=== PATIENT | male | born 1940 | race Caucasian/White ===

== ENCOUNTER 2019-05-27 03:19 | Emergency (ER) | payer MEDICARE, BC ==
[2019-05-27 03:28] LABS: ANION GAP 10.7; CHLORIDE,CL 105 mmol/L (101-111); SODIUM,NA 138 mmol/L (135-145)
[2019-05-27] MEDS ORDERED: hydrALAZINE 20 MG/ML SDV IVPUSH ONE (03:31)
--- NOTE | 2019-05-27 04:33 | EDM.PDOC ---
ED HPI GENERAL MEDICAL PROBLEM - General Chief Complaint: Syncope Stated Complaint: AMBULANCE Time Seen by Provider: 05/27/19 03:25 Source of Information: Reports: Patient, EMS, Family History Limitations: Reports: No Limitations - History of Present Illness INITIAL COMMENTS - FREE TEXT/NARRATIVE: c/o not feeling well all day yesterday, with primary symptom of dull headache across forehead . woke around 1 to go to BR and was dizzy, went back to bed for hour, woke again to go to BR and dizziness seemed worse. Called EMS, By time EMS arrive patient felt better, had taken 2 aspirin, Denied chest pain, weakness, no difficulty talking. No memory or balance sx reported. EMS not able to walk from house to rig on own. N0 recent fever, felt chilled some yesterday. No nausea or vomiting. - Related Data Allergies Allergy/AdvReac Type Severity Reaction Status Date / Time azithromycin [From Zithromax] Allergy Cannot Verified 05/27/19 03:00 Remember ezetimibe Allergy Muscle Verified 05/27/19 03:00 Aches oxycodone [Oxycodone] Allergy Tachycardia Verified 05/27/19 03:00 pantoprazole [From Protonix] Allergy Cannot Verified 05/27/19 03:00 Remember pravastatin Allergy Muscle Verified 05/27/19 03:00 Aches Jvcopmy-Erp-Yxn Reductase Allergy Muscle Verified 05/27/19 03:00 Inhibitor Aches Home Meds: Home Meds Aspirin [Low Dose Aspirin EC] 81 mg PO DAILY 01/15/14 [History] Multivitamin [Men's Multi-Vitamin] 1 tab PO DAILY 01/15/14 [History] Tamsulosin [Flomax] 0.4 mg PO DAILY 01/15/14 [History] Levothyroxine [Synthroid] 100 mcg PO DAILY 04/09/19 [History] Losartan [Cozaar] 50 mg PO DAILY 04/09/19 [History] atorvaSTATin [Lipitor] 10 mg PO DAILY 04/09/19 [History] Budesonide/Formoterol Fumarate [Symbicort 80-4.5 MCG] 1 puff INH BID 04/10/19 [ History] Methotrexate 15 mg PO WEEKLY 04/10/19 [History] Albuterol [Ventolin HFA] 2 puff INH Q4H PRN 05/27/19 [History] Past Medical History Cardiovascular History: Reports: High Cholesterol, Hypertension Social & Family History - Family History Family Medical History: Noncontributory - Tobacco Use Smoking Status *Q: Never Smoker Second Hand Smoke Exposure: No - Caffeine Use Caffeine Use: Reports: None - Recreational Drug Use Recreational Drug Use: No ED ROS GENERAL - Review of Systems Review Of Systems: Comprehensive ROS is negative, except as noted in HPI. ED EXAM, DIZZINESS - Physical Exam Exam: See Below Exam Limited By: No Limitations General Appearance: Alert, No Apparent Distress, Anxious (mild) Eye Exam: Bilateral Eye: EOMI, PERRL Ears: Normal External Exam, Normal Canal, Normal TMs Nose: Normal Inspection Throat/Mouth: Normal Inspection, Normal Lips, Normal Voice Head Exam: Atraumatic, Normocephalic Neck: Normal Inspection, Full Range of Motion Respiratory/Chest: No Respiratory Distress, Lungs Clear, Normal Breath Sounds Cardiovascular: Normal Peripheral Pulses, Regular Rate, Rhythm, No Edema GI/Abdominal: Normal Bowel Sounds Neurological: Alert, Normal Mood/Affect, Normal Dorsiflexion, CN II-XII Intact, Normal Plantar Flexion, No Motor/Sensory Deficits, Oriented x 3. No: Abnormal Sensation, Abnormal Light Touch Extremities: Normal Inspection Psychiatric: Anxious (mild) Skin Exam: Warm, Dry, Intact, Normal Color Course - Vital Signs Last Recorded V/S: Last Vital Signs Temp 97.4 F 05/27/19 03:00 Pulse 64 05/27/19 03:00 Resp 16 05/27/19 03:00 BP 176/80 H 05/27/19 03:00 Pulse Ox 97 05/27/19 03:00 - Orders/Labs/Meds Orders: Active Orders 24 hr Category Date Time Status EKG Documentation Completion [RC] STAT Care 05/27/19 03:03 Active Chest 1V Frontal [CR] Stat Exams 05/27/19 03:03 Taken Head wo Cont [CT] Stat Exams 05/27/19 03:03 Taken Labs: Laboratory Tests 05/27/19 05/27/19 05/27/19 Range/Units 03:02 03:02 03:02 WBC 6.8 (5.0-10.0) 10^3/uL RBC 4.10 L (4.6-6.2) 10^6/uL Hgb 13.5 L (14.0-18.0) g/dL Hct 39.0 L (40.0-54.0) % MCV 95.1 (80-100) fL MCH 32.9 (27.0-34.0) pg MCHC 34.6 (33.0-35.0) g/dL Plt Count 193 (150-450) 10^3/uL Neut % (Auto) 69.5 (42.2-75.2) % Lymph % (Auto) 18.5 L (20.5-50.1) % [place] % (Auto) 7.1 (2-8) % Eos % (Auto) 4.0 H (1.0-3.0) % Baso % (Auto) 0.9 (0.0-1.0) % PT 9.5 (9.0-12.0) SEC INR 0.9 (0.9-1.2) Sodium 138 (135-145) mmol/L Potassium 3.7 (3.6-5.0) mmol/L Chloride 105 (101-111) mmol/L Carbon Dioxide 26.0 (21.0-31.0) mmol/L Anion Gap 10.7 BUN 15 (7-18) mg/dL Creatinine 1.1 (0.6-1.3) mg/dL Est Cr Clr Drug Dosing TNP Estimated GFR (MDRD) > 60 BUN/Creatinine Ratio 13.63 Glucose 106 H (74-105) mg/dL Calcium 8.8 (8.4-10.2) mg/dl Magnesium 2.0 (1.8-2.5) mg/dL Total Bilirubin 0.6 (0.2-1.0) mg/dL AST 25 (10-42) IU/L ALT 21 (10-60) IU/L Alkaline Phosphatase 90 (42-121) IU/L CK-MB (CK-2) (0.4-4.7) ng/mL Troponin I (0.00-0.02) ng/ml B-Natriuretic Peptide (0-100) pg/ml Total Protein 6.8 (6.7-8.2) g/dl Albumin 4.2 (3.2-5.5) g/dl Globulin 2.6 Albumin/Globulin Ratio 1.62 TSH, Ultra Sensitive (0.45-5.33) uIu/mL Urine Color (YELLOW) Urine Appearance (CLEAR) Urine pH (5.0-9.0) Ur Specific [place] (1.005-1.030) Urine Protein (NEGATIVE) Urine Glucose (UA) (NEGATIVE) Urine Ketones (NEGATIVE) Urine Occult Blood (NEGATIVE) Urine Nitrite (NEGATIVE) Urine Bilirubin (NEGATIVE) Urine Urobilinogen (0.2-1.0) mg/dL Ur Leukocyte Esterase (NEGATIVE) Urine RBC /HPF Urine WBC (0-5/HPF) /HPF Ur Epithelial Cells (NOT SEEN) /HPF Amorphous Sediment (NOT SEEN) /HPF Urine Bacteria (0-FEW/HPF) /HPF Urine Mucus (NOT SEEN) /LPF Ethyl Alcohol < 5 mg/dL 05/27/19 05/27/19 05/27/19 Range/Units 03:02 03:02 03:02 WBC (5.0-10.0) 10^3/uL RBC (4.6-6.2) 10^6/uL Hgb (14.0-18.0) g/dL Hct (40.0-54.0) % MCV (80-100) fL MCH (27.0-34.0) pg MCHC (33.0-35.0) g/dL Plt Count (150-450) 10^3/uL Neut % (Auto) (42.2-75.2) % Lymph % (Auto) (20.5-50.1) % [place] % (Auto) (2-8) % Eos % (Auto) (1.0-3.0) % Baso % (Auto) (0.0-1.0) % PT (9.0-12.0) SEC INR (0.9-1.2) Sodium (135-145) mmol/L Potassium (3.6-5.0) mmol/L Chloride (101-111) mmol/L Carbon Dioxide (21.0-31.0) mmol/L Anion Gap BUN (7-18) mg/dL Creatinine (0.6-1.3) mg/dL Est Cr Clr Drug Dosing Estimated GFR (MDRD) BUN/Creatinine Ratio Glucose (74-105) mg/dL Calcium (8.4-10.2) mg/dl Magnesium (1.8-2.5) mg/dL Total Bilirubin (0.2-1.0) mg/dL AST (10-42) IU/L ALT (10-60) IU/L Alkaline Phosphatase (42-121) IU/L CK-MB (CK-2) 1.60 (0.4-4.7) ng/mL Troponin I < 0.02 (0.00-0.02) ng/ml B-Natriuretic Peptide (0-100) pg/ml Total Protein (6.7-8.2) g/dl Albumin (3.2-5.5) g/dl Globulin Albumin/Globulin Ratio TSH, Ultra Sensitive 4.75 (0.45-5.33) uIu/mL Urine Color (YELLOW) Urine Appearance (CLEAR) Urine pH (5.0-9.0) Ur Specific [place] (1.005-1.030) Urine Protein (NEGATIVE) Urine Glucose (UA) (NEGATIVE) Urine Ketones (NEGATIVE) Urine Occult Blood (NEGATIVE) Urine Nitrite (NEGATIVE) Urine Bilirubin (NEGATIVE) Urine Urobilinogen (0.2-1.0) mg/dL Ur Leukocyte Esterase (NEGATIVE) Urine RBC /HPF Urine WBC (0-5/HPF) /HPF Ur Epithelial Cells (NOT SEEN) /HPF Amorphous Sediment (NOT SEEN) /HPF Urine Bacteria (0-FEW/HPF) /HPF Urine Mucus (NOT SEEN) /LPF Ethyl Alcohol mg/dL 05/27/19 05/27/19 Range/Units 03:02 03:48 WBC (5.0-10.0) 10^3/uL RBC (4.6-6.2) 10^6/uL Hgb (14.0-18.0) g/dL Hct (40.0-54.0) % MCV (80-100) fL MCH (27.0-34.0) pg MCHC (33.0-35.0) g/dL Plt Count (150-450) 10^3/uL Neut % (Auto) (42.2-75.2) % Lymph % (Auto) (20.5-50.1) % [place] % (Auto) (2-8) % Eos % (Auto) (1.0-3.0) % Baso % (Auto) (0.0-1.0) % PT (9.0-12.0) SEC INR (0.9-1.2) Sodium (135-145) mmol/L Potassium (3.6-5.0) mmol/L Chloride (101-111) mmol/L Carbon Dioxide (21.0-31.0) mmol/L Anion Gap BUN (7-18) mg/dL Creatinine (0.6-1.3) mg/dL Est Cr Clr Drug Dosing Estimated GFR (MDRD) BUN/Creatinine Ratio Glucose (74-105) mg/dL Calcium (8.4-10.2) mg/dl Magnesium (1.8-2.5) mg/dL Total Bilirubin (0.2-1.0) mg/dL AST (10-42) IU/L ALT (10-60) IU/L Alkaline Phosphatase (42-121) IU/L CK-MB (CK-2) (0.4-4.7) ng/mL Troponin I (0.00-0.02) ng/ml B-Natriuretic Peptide 29 (0-100) pg/ml Total Protein (6.7-8.2) g/dl Albumin (3.2-5.5) g/dl Globulin Albumin/Globulin Ratio TSH, Ultra Sensitive (0.45-5.33) uIu/mL Urine Color Light yellow (YELLOW) Urine Appearance Slightly cloudy (CLEAR) Urine pH 8.5 (5.0-9.0) Ur Specific [place] 1.020 (1.005-1.030) Urine Protein Negative (NEGATIVE) Urine Glucose (UA) Negative (NEGATIVE) Urine Ketones Negative (NEGATIVE) Urine Occult Blood Trace-intact H (NEGATIVE) Urine Nitrite Negative (NEGATIVE) Urine Bilirubin Negative (NEGATIVE) Urine Urobilinogen 0.2 (0.2-1.0) mg/dL Ur Leukocyte Esterase Negative (NEGATIVE) Urine RBC 0-5 /HPF Urine WBC Not seen (0-5/HPF) /HPF Ur Epithelial Cells Rare (NOT SEEN) /HPF Amorphous Sediment Few (NOT SEEN) /HPF Urine Bacteria Rare (0-FEW/HPF) /HPF Urine Mucus Few H (NOT SEEN) /LPF Ethyl Alcohol mg/dL Meds: Medications Discontinued Medications Generic Name Dose Route Start Last Admin Trade Name Freq PRN Reason Stop Dose Admin Hydralazine HCl 5 mg 05/27/19 03:31 Apresoline IVPUSH 05/27/19 03:32 ONETIME ONE - Radiology Interpretation Free Text/Narrative:: head CT question subacute left occipital infarct MRI recommended. See full Radiology report. - Re-Assessments/Exams Free Text/Narrative Re-Assessment/Exam: 05/27/19 05:[address] Michelle Woodson ED accepting. Departure - Departure Time of Disposition: 05:03 Disposition: DC/Tfer to Acute Hospital 02 Condition: Undetermined Clinical Impression: Dizzy - Discharge Information *PRESCRIPTION DRUG MONITORING PROGRAM REVIEWED*: No *COPY OF PRESCRIPTION DRUG MONITORING REPORT IN PATIENT KYLE: No Forms: ED Department Discharge Sepsis Event Note - Evaluation Sepsis Screening Result: No Definite Risk - Focused Exam Vital Signs: Vital Signs Temp Pulse Resp BP Pulse Ox 05/27/19 03:00 97.4 F 64 16 176/80 H 97 Date Exam was Performed: 05/27/19 Time Exam was Performed: 05:04 - My Orders Last 24 Hours: My Active Orders 05/27/19 03:03 EKG Documentation Completion [RC] STAT Chest 1V Frontal [CR] Stat Head wo Cont [CT] Stat - Assessment/Plan Last 24 Hours: My Active Orders 05/27/19 03:03 EKG Documentation Completion [RC] STAT Chest 1V Frontal [CR] Stat Head wo Cont [CT] Stat
== END 2019-05-27 05:45 ==
LOC: DL.ED 03:19
DX: R42 Dizziness and giddiness (principal); I10 Essential (primary) hypertension; E78.00 Pure hypercholesterolemia, unspecified; Z88.1 Allergy status to other antibiotic agents; Z88.8 Allergy status to other drugs, medicaments and biological substances; Z79.82 Long term (current) use of aspirin
CPT/HCPCS: 36415; 70450; 71045; 80053; 80307; 81001; 82553; 83735; 83880; 84443; 84484; 85025; 85610; 87804; 93005; 99284; 99285-25

== ENCOUNTER 2019-06-20 09:58 | Emergency (ER) | payer MEDICARE, BC ==
[2019-06-20] MEDS ORDERED: Oxymetazoline 0.05% Nasal Spray 15 ML Bottle NAS ONE ×2 (09:59→10:21)
[2019-06-20] MEDS ORDERED: Tranexamic Acid 1,000 MG in Sodium Chloride 0.9% 100 ML IV ONE (10:13)
[2019-06-20] MEDS ORDERED: Oxymetazoline 0.05% Nasal Spray 15 ML Bottle ONE (10:23)
--- NOTE | 2019-06-20 10:52 | EDM.PDOC ---
ED HPI GENERAL MEDICAL PROBLEM - General Chief Complaint: ENT Problem Stated Complaint: BLOODY NOSE Time Seen by Provider: 06/20/19 10:25 Source of Information: Reports: Patient, Family (), Old Records, RN, RN Notes Reviewed History Limitations: Reports: No Limitations - History of Present Illness INITIAL COMMENTS - FREE TEXT/NARRATIVE: Pt presents to ER with c/o onset of bleeding from right nares yesterday. Denies cough, trauma, congestion, or any known cause. He takes an Aspirin 81mg daily. Remote history of nose bleeds, but none for several years. Denies lightheadedness, rapid HR, or syncope. Pt was initially able to get the bleeding to stop, but it recurred several times yesterday and through the night. Today the Rt side began bleeding heavier and after being unable to stop it at all, he decided to come to the ER. Onset: Sudden Duration: Getting Worse, Recurring Quality: Reports: Other (Denies pain) Severity: Severe Improves with: Reports: None Worsens with: Reports: None Associated Symptoms: Reports: No Other Symptoms Treatments SEO EXECUTIVE: Reports: Home Treatments (pressure) - Related Data Allergies Allergy/AdvReac Type Severity Reaction Status Date / Time azithromycin [From Zithromax] Allergy Cannot Verified 05/27/19 03:00 Remember ezetimibe Allergy Muscle Verified 05/27/19 03:00 Aches oxycodone [Oxycodone] Allergy Tachycardia Verified 05/27/19 03:00 pantoprazole [From Protonix] Allergy Cannot Verified 05/27/19 03:00 Remember pravastatin Allergy Muscle Verified 05/27/19 03:00 Aches Xaqzcoc-Jjw-Yqr Reductase Allergy Muscle Verified 05/27/19 03:00 Inhibitor Aches Home Meds: Home Meds Aspirin [Low Dose Aspirin EC] 81 mg PO DAILY 01/15/14 [History] Multivitamin [Men's Multi-Vitamin] 1 tab PO DAILY 01/15/14 [History] Tamsulosin [Flomax] 0.4 mg PO DAILY 01/15/14 [History] Levothyroxine [Synthroid] 100 mcg PO DAILY 04/09/19 [History] Losartan [Cozaar] 50 mg PO DAILY 04/09/19 [History] atorvaSTATin [Lipitor] 10 mg PO DAILY 04/09/19 [History] Budesonide/Formoterol Fumarate [Symbicort 80-4.5 MCG] 1 puff INH BID 04/10/19 [ History] Methotrexate 15 mg PO WEEKLY 04/10/19 [History] Albuterol [Ventolin HFA] 2 puff INH Q4H PRN 05/27/19 [History] Past Medical History Cardiovascular History: Reports: High Cholesterol, Hypertension Social & Family History - Family History Family Medical History: Noncontributory - Caffeine Use Caffeine Use: Reports: None - Living Situation & Occupation Living situation: Reports: , with Spouse Occupation: Retired ED ROS ENT - Review of Systems Review Of Systems: Comprehensive ROS is negative, except as noted in HPI. ED EXAM, ENT - Physical Exam Exam: See Below Exam Limited By: No Limitations General Appearance: Alert, WD/WN, No Apparent Distress Eye Exam: Bilateral Eye: Normal Inspection Nose: Active Bleeding (Rt nares) Mouth/Throat: Normal Lips, Normal Oropharynx (with blood in pharynx) Head: Atraumatic, Normocephalic Neck: Normal Inspection Respiratory/Chest: No Respiratory Distress, Lungs Clear, Normal Breath Sounds, No Accessory Muscle Use, Chest Non-Tender Cardiovascular: Regular Rate, Rhythm Neurological: Alert, Oriented, CN II-XII Intact Psychiatric: Normal Affect, Normal Mood Skin: Warm, Dry, Intact, Normal Color, No Rash ED ENT PROCEDURES - Epistaxis Procedure Indication: Epistaxis, Uncontrolled Recent anticoagulants/antiplatlets: Yes Uncontrolled HTN: No Recent septal/nasal surgery: No Site of bleeding: Right Nare Clearing of clots: Patient Blew Nose Topical Meds: Other (Afrin) Ice pack to area: Yes Anterior Packing: Inflatable Nasal Tampon (soaked in TXA) Complications: No Course - Vital Signs Last Recorded V/S: Last Vital Signs Temp 98.1 F 06/20/19 10:15 Pulse 69 06/20/19 10:15 Resp 18 06/20/19 10:15 BP 142/67 H 06/20/19 10:15 Pulse Ox 99 06/20/19 10:15 - Orders/Labs/Meds Meds: Medications Discontinued Medications Generic Name Dose Route Start Last Admin Trade Name Freq PRN Reason Stop Dose Admin Tranexamic Acid 1,000 mg/ 110 mls @ 660 mls/hr 06/20/19 10:13 Sodium Chloride IV 06/20/19 10:22 ONETIME ONE Oxymetazoline HCl 1 ml 06/20/19 10:21 06/20/19 10:27 Afrin Original 0.05% Nasal [place] YOSSI 06/20/19 10:22 1 ml ONETIME ONE Administration Oxymetazoline HCl Confirm 06/20/19 10:23 06/20/19 10:27 Afrin Original 0.05% Nasal [place] Administered 06/20/19 10:24 Not Given Dose 15 ml .ROUTE .STK-MED ONE Tranexamic Acid 1,000 mg 06/20/19 10:29 06/20/19 10:31 Cyklokapron TOP 06/20/19 10:38 1,000 mg ONETIME ONE Administration Departure - Departure Time of Disposition: 10:53 Disposition: Home, Self-Care 01 Condition: Good Clinical Impression: Epistaxis - Discharge Information *PRESCRIPTION DRUG MONITORING PROGRAM REVIEWED*: Not Applicable *COPY OF PRESCRIPTION DRUG MONITORING REPORT IN PATIENT KYLE: Not Applicable Instructions: Nosebleed, Adult Forms: ED Department Discharge Additional Instructions: Rx: Augmentin 875mg Do not blow or rub nose. Follow up in clinic tomorrow (Tuesday) or Tuesday for removal of nasal packing. Sepsis Event Note - Evaluation Sepsis Screening Result: No Definite Risk - Focused Exam Vital Signs: Vital Signs Temp Pulse Resp BP Pulse Ox 06/20/19 10:15 98.1 F 69 18 142/67 H 99 Date Exam was Performed: 06/20/19 Time Exam was Performed: 10:55
== END 2019-06-20 11:18 | disposition home or self-care (01) ==
LOC: DL.ED 09:58
DX: R04.0 Epistaxis (principal); E78.00 Pure hypercholesterolemia, unspecified; I10 Essential (primary) hypertension; Z79.82 Long term (current) use of aspirin; Z79.899 Other long term (current) drug therapy; Z88.5 Allergy status to narcotic agent; Z88.1 Allergy status to other antibiotic agents
CPT/HCPCS: 30901; 99283; A9270

== ENCOUNTER 2022-02-08 07:13 | Day surgery (SDC) | payer MEDICARE, BC ==
[~2022-02-08 07:13] MED LIST: Midazolam 1 MG/ML 2 ML SDV ONE; fentaNYL 100 MCG/2 ML SDV ONE
[2022-02-08] MEDS ORDERED: fentaNYL 100 MCG/2 ML SDV IV ONE (07:14)
[2022-02-08] MEDS ORDERED: Midazolam 1 MG/ML 2 ML SDV IV ONE (07:14)
[2022-02-08] MEDS: Dextrose 5%-0.45% NaCl 1,000 ML IV SCH (07:45)
[2022-02-08] MEDS: fentaNYL 100 MCG/2 ML SDV IV ONE ×2 (09:13→09:14)
[2022-02-08] MEDS: Midazolam 1 MG/ML 2 ML SDV IV ONE ×4 (09:14→09:21)
== END 2022-02-08 11:13 | disposition home or self-care (01) ==
LOC: DL.ENDO 07:13
PROVIDERS: ATTEND Internal Medicine Gastroenterology
DX: Z12.11 Encounter for screening for malignant neoplasm of colon (principal); K57.30 Diverticulosis of large intestine without perforation or abscess without bleeding; K62.7 Radiation proctitis; H91.90 Unspecified hearing loss, unspecified ear; I10 Essential (primary) hypertension; E03.9 Hypothyroidism, unspecified; E78.00 Pure hypercholesterolemia, unspecified; G47.33 Obstructive sleep apnea (adult) (pediatric); G45.1 Carotid artery syndrome (hemispheric); D64.9 Anemia, unspecified; Z86.010 Personal history of colon polyps; Z86.16 Personal history of COVID-19; Z98.890 Other specified postprocedural states; Z88.1 Allergy status to other antibiotic agents; Z88.5 Allergy status to narcotic agent; Z79.82 Long term (current) use of aspirin
CPT/HCPCS: G0105; J2250; J3010; J7042

== ENCOUNTER 2023-04-13 11:45 | Emergency (ER) | payer MEDICARE, BC ==
[2023-04-13] MEDS ORDERED: cefTRIAXone 1 GM, Lidocaine 1% 2.1 ML IM ONE ×2 (12:53)
[2023-04-13] MEDS ORDERED: Benzonatate 100 MG Cap PO ONE (12:53)
[2023-04-13 13:07] LABS: CORONAVIRUS COVID-19 NAA NEGATIVE (NEGATIVE); INFLUENZA A NAA POSITIVE (NEGATIVE); INFLUENZA B NAA NEGATIVE (NEGATIVE); RESPIRATORY SYNCYTIAL VIR NAA NEGATIVE (NEGATIVE)
== END 2023-04-13 13:44 | disposition home or self-care (01) ==
LOC: DL.ED 11:45
DX: J18.9 Pneumonia, unspecified organism (principal); E78.00 Pure hypercholesterolemia, unspecified; I10 Essential (primary) hypertension; I25.10 Atherosclerotic heart disease of native coronary artery without angina pectoris; M19.90 Unspecified osteoarthritis, unspecified site; J45.909 Unspecified asthma, uncomplicated; Z86.16 Personal history of COVID-19; Z79.82 Long term (current) use of aspirin; Z79.899 Other long term (current) drug therapy; Z88.8 Allergy status to other drugs, medicaments and biological substances
CPT/HCPCS: 0241U; 71046; 87081; 87430; 96372; 99284; A9270-GY; J0696; J3490

== ENCOUNTER 2023-12-22 17:28 | Emergency (ER) | payer MEDICARE, BC ==
[2023-12-22 19:04] LABS: BASOPHILS PERCENT AUTO 1.2 % (0.0-1.0); EOSINOPHILS PERCENT AUTO 5.1 % (1.0-3.0); HEMATOCRIT 39.5 % (40.0-54.0); HEMOGLOBIN 12.7 g/dL (14.0-18.0); MEAN CORPUSCULAR HEMOGLOBIN 30.8 pg (27.0-34.0); MEAN CORPUSCULAR HGB CONC 32.2 g/dL (33.0-35.0); MEAN CORPUSCULAR VOLUME 95.6 fL (80-100); NEUTROPHILS PERCENT AUTO 60.7 % (42.2-75.2); PLATELET COUNT,PLT 199 10^3/uL (150-450); RED BLOOD CELL COUNT 4.13 10^6/uL (4.6-6.2); WHITE BLOOD CELL COUNT,WBC 5.1 10^3/uL (5.0-10.0)
[2023-12-22] MEDS: Sodium Chloride 0.9% 1,000 ML IV ONE (19:24)
[2023-12-22 19:35] LABS: A/G RATIO 1.2; ALBUMIN 3.8 g/dL (3.4-5.0); ANION GAP 11.1 mEq/L (7-13); BILIRUBIN TOTAL 0.5 mg/dL (0.2-1.0); BUN/CREATININE RATIO 13.1 (No establ ref range); CALCIUM 8.9 mg/dL (8.5-10.1); CREATININE 1.3 mg/dL (0.70-1.30); EST CRCL DRUG DOSING (CG) 35.42 mL/min; POTASSIUM,K 4.1 mmol/L (3.5-5.1)
[2023-12-22 20:10] LABS: APPEARANCE,URINE CLEAR (CLEAR); BILIRUBIN,URINE NEGATIVE (NEGATIVE); COLOR,URINE YELLOW (YELLOW); GLUCOSE,URINE NEGATIVE (NEGATIVE); KETONES,URINE NEGATIVE (NEGATIVE); LEUKOCYTE ESTERASE,URINE NEGATIVE (NEGATIVE); NITRITE,URINE NEGATIVE (NEGATIVE); OCCULT BLOOD,URINE NEGATIVE (NEGATIVE); PH,URINE 5.5 (5.0-9.0); PROTEIN,URINE NEGATIVE (NEGATIVE); UROBILINOGEN,URINE 0.2 mg/dL (0.2-1.0)
== END 2023-12-22 20:53 | disposition home or self-care (01) ==
LOC: DL.ED 17:28
DX: E86.0 Dehydration (principal); I10 Essential (primary) hypertension; I25.10 Atherosclerotic heart disease of native coronary artery without angina pectoris; E78.00 Pure hypercholesterolemia, unspecified; I48.91 Unspecified atrial fibrillation; Z79.82 Long term (current) use of aspirin; Z79.899 Other long term (current) drug therapy; Z88.5 Allergy status to narcotic agent; Z88.8 Allergy status to other drugs, medicaments and biological substances; Z88.1 Allergy status to other antibiotic agents
CPT/HCPCS: 36415; 70450; 80053; 81003; 82947; 83735; 84484; 85025; 93005; 96360; 99284-25; J7030

== ENCOUNTER 2024-06-05 08:07 | Emergency (ER) | payer MEDICARE, BC ==
[2024-06-05 08:35] LABS: BASOPHILS PERCENT AUTO 0.8 % (0.0-1.0); EOSINOPHILS PERCENT AUTO 4.7 % (1.0-3.0); HEMATOCRIT 39.9 % (40.0-54.0); HEMOGLOBIN 13.1 g/dL (14.0-18.0); LYMPHOCYTES PERCENT AUTO 19.1 % (20.5-50.1); MEAN CORPUSCULAR HEMOGLOBIN 31.3 pg (27.0-34.0); MEAN CORPUSCULAR HGB CONC 32.8 g/dL (33.0-35.0); MEAN CORPUSCULAR VOLUME 95.5 fL (80-100); MONOCYTES PERCENT AUTO 8.3 % (2-8); NEUTROPHILS PERCENT AUTO 67.1 % (42.2-75.2); PLATELET COUNT,PLT 216 10^3/uL (150-450); RED BLOOD CELL COUNT 4.18 10^6/uL (4.6-6.2); WHITE BLOOD CELL COUNT,WBC 6.2 10^3/uL (5.0-10.0)
[2024-06-05 08:54] LABS: A/G RATIO 1.3; ALANINE AMINOTRANSFERASE,ALT 22 U/L (16-63); ALBUMIN 3.9 g/dL (3.4-5.0); ALKALINE PHOSPHATASE 122 U/L (46-116); ASPARTATE AMNIOTRANSFERASE,AST 20 U/L (15-37); BILIRUBIN TOTAL 0.7 mg/dL (0.2-1.0); BLOOD UREA NITROGEN,BUN 19 mg/dL (7-18); BUN/CREATININE RATIO 15.4 (No establ ref range); CALCIUM 8.9 mg/dL (8.5-10.1); CARBON DIOXIDE,CO2 28 mmol/L (21-32); CHLORIDE,CL 107 mmol/L (98-107); CREATININE 1.23 mg/dL (0.70-1.30); ESTIMATED GFR 58 mL/min (>=60); GLUCOSE RANDOM 101 mg/dL (70-99); SODIUM,NA 145 mmol/L (136-145)
== END 2024-06-05 10:10 | disposition home or self-care (01) ==
LOC: DL.ED 08:07
DX: R42 Dizziness and giddiness (principal); I10 Essential (primary) hypertension; I25.10 Atherosclerotic heart disease of native coronary artery without angina pectoris; I48.91 Unspecified atrial fibrillation; E78.00 Pure hypercholesterolemia, unspecified; Z88.1 Allergy status to other antibiotic agents; Z88.5 Allergy status to narcotic agent; Z88.8 Allergy status to other drugs, medicaments and biological substances; Z79.82 Long term (current) use of aspirin; Z79.899 Other long term (current) drug therapy; Z79.890 Hormone replacement therapy; Z79.51 Long term (current) use of inhaled steroids
CPT/HCPCS: 36415; 71045; 80053; 82947; 84484; 85025; 93010; 99284; 99285

== ENCOUNTER 2025-02-27 15:40 | Inpatient (IN) | payer MEDICARE, BC ==
[2025-02-27] MEDS ORDERED: Sodium Chloride 0.9% 10 ML Syringe FLUSH PRN (16:08)
[2025-02-27 16:17] LABS: BASOPHILS PERCENT AUTO 0.2 % (0.0-1.0); EOSINOPHILS PERCENT AUTO 0.2 % (1.0-3.0); LYMPHOCYTES PERCENT AUTO 2.9 % (20.5-50.1); MONOCYTES PERCENT AUTO 3.4 % (2-8); NEUTROPHILS PERCENT AUTO 93.3 % (42.2-75.2); PLATELET COUNT,PLT 197 10^3/uL (150-450); RED BLOOD CELL COUNT 4.12 10^6/uL (4.6-6.2); WHITE BLOOD CELL COUNT,WBC 12.1 10^3/uL (5.0-10.0)
[2025-02-27 16:35] LABS: A/G RATIO 1.0; ALANINE AMINOTRANSFERASE,ALT 23.0 U/L (16-63); ASPARTATE AMNIOTRANSFERASE,AST 26.0 U/L (15-37); B-TYPE NATRIURETIC PEPTIDE,BNP 25.0 pg/ml (0-100); BILIRUBIN TOTAL 0.6 mg/dL (0.2-1.0); BLOOD UREA NITROGEN,BUN 16.0 mg/dL (7-18); CARBON DIOXIDE,CO2 30.0 mmol/L (21-32); CHLORIDE,CL 105.0 mmol/L (98-107); CREATININE 1.39 mg/dL (0.70-1.30); EST CRCL DRUG DOSING (CG) 33.8 mL/min; GLUCOSE RANDOM 144.0 mg/dL (70-99); POTASSIUM,K 4.3 mmol/L (3.5-5.1); PROTEIN TOTAL,TP 7.3 g/dL (6.4-8.2); SODIUM,NA 142.0 mmol/L (136-145)
[2025-02-27 16:41] LABS: ESTIMATED GFR 50.0 mL/min (>=60)
[2025-02-27] MEDS: Iopamidol 755 Mg/ML 100 ML Bottle IVPUSH ONE (17:12)
[2025-02-27] MEDS: Hydrocortisone Sodium Succinate 100 MG/2 ML SDV IVPUSH ONE (17:17)
[2025-02-27 18:05] LABS: APPEARANCE,URINE CLEAR (CLEAR); GLUCOSE,URINE NEGATIVE (NEGATIVE); OCCULT BLOOD,URINE NEGATIVE (NEGATIVE)
[2025-02-27] MEDS: Levofloxacin/Dextrose 5%-Water 750 MG in Premix Bag 1 BAG IV ONE (18:24)
[2025-02-27 18:37] LABS: EPITHELIAL CELLS,URINE RARE /HPF (NOT SEEN)
[2025-02-27] MEDS ORDERED: Ondansetron 4 MG/2 ML SDV IVPUSH PRN (19:52)
[2025-02-27] MEDS ORDERED: Sennosides/Docusate Sodium 50-8.6 MG Tab PO PRN (19:52)
[2025-02-27] MEDS ORDERED: Budesonide 0.5 MG/2 ML Neb Susp INH SCH (20:30)
[2025-02-27] MEDS ORDERED: Non-Formulary Medication 1 Each (Budesonide/Formoterol Fumarate [Symbicort 80-4.5 Mcg Inha INH SCH (21:00)
[2025-02-27] MEDS: Formoterol/Mometasone 200-5 MCG 8.8 GM Inhaler INH ONE (21:01)
[2025-02-27 21:48] LABS: IRON,FE 16.0 ug/dL (65-175); PERCENT FE SATURATION 5.8 % (20.0-50.0)
[2025-02-27 22:17] LABS: T4 FREE 1.25 ng/dL (0.76-1.46); TSH ULTRASENSITIVE 2.05 uIU/mL (0.36-3.74)
[2025-02-27 22:18] LABS: FOLIC ACID > 20.0 ng/mL (8.6-58.9)
[2025-02-27] MEDS: Furosemide 40 MG/4 ML VIAL IVPUSH STA (22:43)
[2025-02-28] MEDS: Furosemide 40 MG/4 ML VIAL IVPUSH ONE (05:21)
[2025-02-28 06:25] LABS: BASOPHILS PERCENT AUTO 0.2 % (0.0-1.0); EOSINOPHILS PERCENT AUTO 0.0 % (1.0-3.0); LYMPHOCYTES PERCENT AUTO 6.3 % (20.5-50.1); MONOCYTES PERCENT AUTO 5.8 % (2-8); NEUTROPHILS PERCENT AUTO 87.7 % (42.2-75.2); PLATELET COUNT,PLT 199 10^3/uL (150-450); RED BLOOD CELL COUNT 3.89 10^6/uL (4.6-6.2); WHITE BLOOD CELL COUNT,WBC 17.8 10^3/uL (5.0-10.0)
[2025-02-28] MEDS: Formoterol/Mometasone 200-5 MCG 8.8 GM Inhaler INH SCH (06:51)
[2025-02-28 07:03] LABS: A/G RATIO 0.89; ALANINE AMINOTRANSFERASE,ALT 23.0 U/L (16-63); ASPARTATE AMNIOTRANSFERASE,AST 29.0 U/L (15-37); BILIRUBIN TOTAL 0.8 mg/dL (0.2-1.0); BLOOD UREA NITROGEN,BUN 16.0 mg/dL (7-18); CARBON DIOXIDE,CO2 27.0 mmol/L (21-32); CHLORIDE,CL 103.0 mmol/L (98-107); CREATININE 1.4 mg/dL (0.70-1.30); EST CRCL DRUG DOSING (CG) 33.56 mL/min; ESTIMATED GFR 49.0 mL/min (>=60); GLUCOSE RANDOM 117.0 mg/dL (70-99); POTASSIUM,K 3.9 mmol/L (3.5-5.1); PROTEIN TOTAL,TP 6.8 g/dL (6.4-8.2); SODIUM,NA 141.0 mmol/L (136-145)
[2025-02-28] MEDS: Iopamidol 612 MG/ML 100 ML Bottle IVPUSH ONE (08:14)
[2025-02-28] MEDS: Budesonide 0.5 MG/2 ML Neb Susp INH SCH (08:14)
[2025-02-28 11:56] LABS: BLOOD UREA NITROGEN,BUN 18.0 mg/dL (7-18); CARBON DIOXIDE,CO2 32.0 mmol/L (21-32); CHLORIDE,CL 101.0 mmol/L (98-107); CREATININE 1.75 mg/dL (0.70-1.30); EST CRCL DRUG DOSING (CG) 26.85 mL/min; GLUCOSE RANDOM 107.0 mg/dL (70-99); POTASSIUM,K 4.0 mmol/L (3.5-5.1); SODIUM,NA 141.0 mmol/L (136-145)
[2025-02-28 11:57] LABS: ESTIMATED GFR 38.0 mL/min (>=60)
[2025-03-01 06:51] LABS: BASOPHILS PERCENT AUTO 0.4 % (0.0-1.0); EOSINOPHILS PERCENT AUTO 0.5 % (1.0-3.0); LYMPHOCYTES PERCENT AUTO 10.2 % (20.5-50.1); MONOCYTES PERCENT AUTO 6.5 % (2-8); NEUTROPHILS PERCENT AUTO 82.4 % (42.2-75.2); PLATELET COUNT,PLT 215 10^3/uL (150-450); RED BLOOD CELL COUNT 3.75 10^6/uL (4.6-6.2); WHITE BLOOD CELL COUNT,WBC 10.1 10^3/uL (5.0-10.0)
[2025-03-01 07:12] LABS: A/G RATIO 0.86; ALANINE AMINOTRANSFERASE,ALT 30.0 U/L (16-63); ASPARTATE AMNIOTRANSFERASE,AST 48.0 U/L (15-37); BILIRUBIN TOTAL 0.6 mg/dL (0.2-1.0); BLOOD UREA NITROGEN,BUN 25.0 mg/dL (7-18); CARBON DIOXIDE,CO2 28.0 mmol/L (21-32); CHLORIDE,CL 107.0 mmol/L (98-107); CREATININE 1.67 mg/dL (0.70-1.30); EST CRCL DRUG DOSING (CG) 28.13 mL/min; ESTIMATED GFR 40.0 mL/min (>=60); GLUCOSE RANDOM 105.0 mg/dL (70-99); POTASSIUM,K 3.9 mmol/L (3.5-5.1); PROTEIN TOTAL,TP 6.5 g/dL (6.4-8.2); SODIUM,NA 144.0 mmol/L (136-145)
[2025-03-01] MEDS: Potassium Chloride 10 MEQ Tab.ER PO STA (09:59)
[2025-03-01] MEDS ORDERED: Levofloxacin/Dextrose 5%-Water 750 MG in Premix Bag 1 BAG IV SCH (18:00)
== END 2025-03-01 10:23 | disposition home or self-care (01) | DRG 193 ==
LOC: DL.ED 15:40 → DL.MS 19:32 → DL.ED 19:35
PROVIDERS: ADMIT Student in an Organized Health Care Education/Training Program; ATTEND Student in an Organized Health Care Education/Training Program
PROC: 3E03329 Introduction of Other Anti-infective into Peripheral Vein, Percutaneous Approach (ICD-10-PCS; principal; 2025-02-27)
PROC: 5A09357 Assistance with Respiratory Ventilation, Less than 24 Consecutive Hours, Continuous Positive Airway Pressure (ICD-10-PCS; 2025-02-27)
DX: J18.0 Bronchopneumonia, unspecified organism (principal); J18.9 Pneumonia, unspecified organism; D72.825 Bandemia; J96.01 Acute respiratory failure with hypoxia; I10 Essential (primary) hypertension; E03.9 Hypothyroidism, unspecified; M35.3 Polymyalgia rheumatica; G47.33 Obstructive sleep apnea (adult) (pediatric); E78.00 Pure hypercholesterolemia, unspecified; Z79.890 Hormone replacement therapy; I25.10 Atherosclerotic heart disease of native coronary artery without angina pectoris; I48.91 Unspecified atrial fibrillation; K59.09 Other constipation; F03.90 Unspecified dementia, unspecified severity, without behavioral disturbance, psychotic disturbance, mood disturbance, and anxiety; N18.9 Chronic kidney disease, unspecified; D63.1 Anemia in chronic kidney disease; I12.9 Hypertensive chronic kidney disease with stage 1 through stage 4 chronic kidney disease, or unspecified chronic kidney disease; Z88.1 Allergy status to other antibiotic agents; Z88.8 Allergy status to other drugs, medicaments and biological substances; Z88.5 Allergy status to narcotic agent; Z79.82 Long term (current) use of aspirin; Z79.51 Long term (current) use of inhaled steroids; Z79.899 Other long term (current) drug therapy; Z87.19 Personal history of other diseases of the digestive system; Z85.46 Personal history of malignant neoplasm of prostate; Z98.49 Cataract extraction status, unspecified eye; Z98.890 Other specified postprocedural states; Z99.89 Dependence on other enabling machines and devices; Z79.52 Long term (current) use of systemic steroids
CPT/HCPCS: 36415; 71045; 71275; 80053; 81001; 82607; 82728; 82746; 83540; 83550; 83735; 83880; 84145; 84439; 84443; 84484; 85025; 87040 ×2; 87428; 94640; 96361; 96365; 96375; 99285; A9270; J1720; J1956; J7040; Q9967; 80048; 94010; 94660; 94664; 97161-GP; 97165-GO; 99223; 99232; 99238; J1938; J7512